=== PATIENT | female | born 1980 | race Caucasian/White ===

== ENCOUNTER 2016-09-26 18:55 | Emergency (ER) | payer OTHER ==
[~2016-09-26] VITALS: Ht 167.6 cm; Wt 54.5 kg
[2016-09-26 19:40] VITALS: BP 111/63; PULSE 83; RESP 16; TEMP 98.2; O2SAT 100
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
[2016-09-26] MEDS ORDERED: ORPH100T99 PO (20:18)
== END 2016-09-26 20:35 | disposition home or self-care (01) ==
LOC: PHEFT 18:55
DX: M62.830 Muscle spasm of back (principal); V43.64XA Car passenger injured in collision with van in traffic accident, initial encounter; Y93.9 Activity, unspecified; Y92.9 Unspecified place or not applicable; Y99.9 Unspecified external cause status
CPT/HCPCS: 99283